=== PATIENT | female | born 1965 | race Caucasian/White ===

== ENCOUNTER 2024-12-08 15:29 | Emergency (ER) | payer BC, SELFPAY ==
[2024-12-08 15:35] VITALS: BP 165/92
--- NOTE | 2024-12-08 16:48 | ED.GENMED ---
History of Present Illness
General
Chief Complaint: Fall
Source: patient
Exam Limitations: none
Time Seen by Provider: 12/08/24 16:01
Nursing documentation reviewed up to this point in time: agreed with
History of Present Illness
History of Present Illness:
Patient is a 59-year-old female with history hypertension, hyperlipidemia who presents to the emergency department after fall. Patient states she was at [employer] when she lost her balance and fell backwards striking her head on the rocks
few hours ago. Her was there to witness the fall. She did not lose consciousness. She presents with posterior head pain as well as pain in her right shoulder. She denies any nausea, vomiting, dizziness, or visual changes. She has not
had any confusion or ataxia. No numbness/tingling or weakness in lower extremities. No bowel/bladder incontinence
Patient is not on any oral anticoagulation.
Review of Systems
Review of Systems
Allergies reviewed?: Yes
All Other Systems: ROS reviewed and negative except as documented in HPI and ROS
Phy Exam
Physical Exam
Physical Exam:
GENERAL: No acute distress
HEENT: Contusion to posterior scalp, extraocular muscles intact, no signs of entrapment, dentition intact, no other obvious trauma
NECK: no midline tenderness, normal range of motion, no other obvious trauma
BACK: no midline tenderness, no other obvious trauma,
CHEST: no tenderness, no flail segment, no subcutaneous emphysema, no other obvious trauma
LUNGS: clear to auscultation bilaterally
CARDIOVASCULAR: regular rate and rhythm
ABDOMEN: soft, non-tender, no masses, no other obvious trauma
PELVIS: stable, no obvious injury
EXTREMITIES: Mild abrasion/tenderness to right scapular region, no bony tenderness or obvious deformity of right shoulder, bilateral lower extremities and left upper extremity atraumatic and nontender with full range of motion, distal pulses intact,
no other obvious trauma
NEUROLOGIC: awake, alert x 3, normal [id number], fluid speech, strength 5/5 in bilateral upper and lower extremities, no focal deficits
Course
Orders/Labs/Results
Orders:
Orders
12/08/24 16:31
Cervical Spine wo Contrast CT [CT Cervical Spine W/o Iv Contr] Urgent
Comment:
Reason For Exam: fall
Acetaminophen [Tylenol] 650 mg PO NOW STA
Shoulder, Right 2 Views [CR Shoulder - Right Min 2 View] Urgent
Comment:
Reason For Exam: fall
12/08/24 16:32
CT Head W/o Iv Contrast Urgent
Comment:
Reason For Exam: fall
Vital Signs
Initial and Last Documented VS:
Initial Vital Signs
Temp Pulse Resp BP Pulse Ox
98.0 F 82 20 165/92 99
12/08/24 15:35 12/08/24 15:35 12/08/24 15:35 12/08/24 15:35 12/08/24 15:35
Last Documented Vital Signs
Temp Pulse Resp BP Pulse Ox
98.0 F 82 20 165/92 99
12/08/24 15:35 12/08/24 15:35 12/08/24 15:35 12/08/24 15:35 12/08/24 16:52
MDM/Problems Addressed
Differential Diagnosis Includes:
Not limited to: Contusion, concussion, intra cerebral hemorrhage, skull fracture, abrasion, etc.
MDM/Problems Addressed:
59-year-old female presented after witnessed fall, in which she lost her balance and fell backwards, striking the back of her head on rocks. She did not lose consciousness. She reports a headache and mild right shoulder pain. Denies vomiting,
visual changes, or other neurologic symptoms. On physical exam, she has a contusion to the posterior scalp and tenderness along the right scapular region. Right shoulder is without any obvious deformity. No neurologic deficits are present.
Differential as above.
Given the mechanism of injury, will obtain CT head and cervical spine to rule out intracranial hemorrhage or cervical spine injury. Additionally, will check x-ray of right shoulder given localized tenderness.
Will monitor closely and reassess following imaging.
Update 6:10 PM: CT imaging without evidence of acute traumatic injuries. X-ray of right shoulder without acute findings. On reassessment, she remains well-appearing without any neurologic deficits. She states her headache has improved with
Tylenol. She feels comfortable w/ discharge. I did discuss strict return precautions and advised follow-up with her primary care provider when she returns home to [place] next week. Patient and patient's comfortable with plan. All
questions answered.
Chronic conditions affecting care:
Hypertension
Acute Exacerbation and/or Progression of Chronic Illness:
Acutely hypertensive
*Radiology
Radiology exam reviewed: preliminary read by ED provider (X-ray of right shoulder reviewed by me-no acute findings) and radiology read reviewed
*Pulse Oximetry
SaO2: 99
Oxygen Mode of Delivery: Room air
Patient hypoxic: no
*EKG
Interpreted by ED Provider?: NA
*Skip Tender Interpretation
Rate: Skip Tender- N/A
*Critical Care Note
Total Time (30-74mins, 75-104mins- exclusive of procedures): Not Applicable
ED Attending Note
-
Portions of this chart may have been created with voice recognition software.� Occasional wrong word or��sound alike� substitutions may have occurred due to the inherent limitations of voice recognition software.
Discharge Plan
Departure
Patient Disposition: Home (Routine Discharge)
Date of Disposition: 12/08/24
Time of Disposition: 18:13
Patient with high blood pressure during this ER visit?: Yes
Condition: Good
Covid-19: Not Applicable
Discharge Problem:
Contusion of scalp, Minor head injury
Instructions: Head Injury in Adults (DC), Contusion (DC), BLOOD PRESSURE
Referrals:
PRIVATE,PHYSICIAN [Family Provider, Internal Medicine]
Activity Restrictions/Additional Instructions:
RETURN TO THE EMERGENCY DEPARTMENT WITH ANY SEVERE HEADACHE OR NECK PAIN, INTRACTABLE NAUSEA/VOMITING, NUMBNESS/TINGLING OR WEAKNESS IN LOWER EXTREMITIES, CHANGES IN VISION, CHANGES IN MENTAL STATUS, WORSENING IN CURRENT SYMPTOMS, OR ANY OTHER
CONCERNS
- As discussed�the CT imaging of your head and cervical spine showed no evidence of acute traumatic injuries. The x-ray of your right shoulder showed no evidence of fracture.
- You should treat symptoms supportively at home with ice, Tylenol/Motrin, rest.
- Please follow-up with your primary care doctor when you return home next week for further evaluation/management and to ensure that your symptoms are improving
Monitor your symptoms closely and return to the emergency department with any acute worsening/new symptoms or any other concerns
Interventions
Interventions:
*General Assessment Last Done: 12/08/24 15:35
Discharge Date and Time
Print Language: [id number]
[2024-12-08] MEDS: TYLENOL 650 MG PO (17:13)
== END 2024-12-08 18:28 | disposition home or self-care (01) ==
LOC: EMR 15:29
PROVIDERS: EMERGENCY PHYSICIAN Emergency Medicine
DX: S00.03XA Contusion of scalp, initial encounter (principal); M25.511 Pain in right shoulder; W01.198A Fall on same level from slipping, tripping and stumbling with subsequent striking against other object, initial encounter; I10 Essential (primary) hypertension; E78.5 Hyperlipidemia, unspecified
CPT/HCPCS: 99284; 70450; 72125; 73030